=== PATIENT | female | born 1950 | race Caucasian/White ===

== ENCOUNTER 2018-10-04 16:30 | Outpatient (RCR) | payer MEDICARE, OTHER, SELFPAY | END 2018-10-04 17:15 | disposition home or self-care (01) | LOC: PT 16:30 | PROVIDERS: Visit Provider Orthopaedic Surgery | DX: Z96.651 Presence of right artificial knee joint (principal) | CPT/HCPCS: 97010; 97110; 97112; 97140; 97163 ==

== ENCOUNTER 2019-01-19 17:00 | Outpatient (RCR) | payer MEDICARE, OTHER, SELFPAY | END 2019-01-19 18:00 | disposition home or self-care (01) | LOC: PT 17:00 | PROVIDERS: Visit Provider Orthopaedic Surgery | DX: Z96.651 Presence of right artificial knee joint (principal) | CPT/HCPCS: 97010; 97014; 97110; 97112; 97116; 97140; 97163; G0283 ==